=== PATIENT | female | born 1980 | race Caucasian/White ===

== ENCOUNTER 2017-12-17 09:42 | Emergency (ER) | payer MEDICAID, OTHER ==
--- NOTE | 2017-12-17 10:23 | EDM.PDOC ---
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 12/17/17 [Rx] Past Medical History HEENT History: Reports: Impaired Vision Other Cardiovascular History: TREATED FOR VARICOSE VEINS Respiratory History: Reports: None Gastrointestinal History: Reports: Cholelithiasis, GERD Genitourinary History: Reports: None COMPANY PILOT History: Reports: Other OB/BYN History: V PARA V. PAST TUBAL LIGATION Other Musculoskeletal History: PAIN RIGHT KNEE Neurological History: Reports: None Psychiatric History: Reports: Anxiety, Depression Other Psychiatric History: SEES PEOPLE AT [facility] ET MEDICATES FOR DEPRESSION ET ANXIETY. Endocrine/Metabolic History: Reports: None, Obesity/BMI 30+ Hematologic History: Reports: None Immunologic History: Reports: None Oncologic (Cancer) History: Reports: None Dermatologic History: Reports: Other (See Below) Other Dermatologic History: varicose veins - Infectious Disease History Infectious Disease History: Reports: Chicken Pox - Past Surgical History Head Surgeries/Procedures: Reports: None HEENT Surgical History: Reports: None GI Surgical History: Reports: None Female Surgical History: Reports: Tubal Ligation, Other (See Below) Musculoskeletal Surgical History: Reports: Arthroscopic Knee Other Musculoskeletal Surgeries/Procedures:: L knee scope Dermatological Surgical History: Reports: Other (See Below) Social & Family History - Family History Family Medical History: Noncontributory - Tobacco Use Smoking Status *Q: Current Every Day Smoker Years of Tobacco use: 23 Packs/Tins Daily: 1 Month/Year Tobacco Last Used: 09/2015 - Caffeine Use Caffeine Use: Reports: Coffee - Recreational Drug Use Recreational Drug Use: No Review of Systems - Review of Systems Review Of Systems: See Below Constitutional: Reports: No Symptoms Eyes: Reports: No Symptoms Ears: Reports: No Symptoms Nose: Reports: No Symptoms Mouth/Throat: Reports: No Symptoms Respiratory: Reports: No Symptoms Cardiovascular: Reports: No Symptoms GI/Abdominal: Reports: No Symptoms Genitourinary: Reports: No Symptoms Musculoskeletal: Reports: No Symptoms Skin: Reports: Wound Neurological: Reports: No Symptoms Psychiatric: Reports: No Symptoms ED EXAM, GENERAL - Physical Exam Exam: See Below Exam Limited By: No Limitations General Appearance: Alert, WD/WN, No Apparent Distress Extremities: Other (R 5th finger with 1.2 x 0.7 cm avulsion on lateral aspect of fingertip, not involving nail or joint or actual distal tip itself, there is about 0.1 cm of dermis at the rim so that maximal exposed fat is 1.0 cm, cleaned by RN, no f.b.) Course - Vital Signs Last Recorded V/S: Last Vital Signs Temp 36.7 C 12/17/17 09:43 Pulse 73 12/17/17 09:43 Resp 18 12/17/17 09:43 BP 121/81 12/17/17 09:43 Pulse Ox 98 12/17/17 09:43 - Re-Assessments/Exams Free Text/Narrative Re-Assessment/Exam: 12/17/17 10:25 d/w hand surgeon Dr Herring at [facility] who recommended healing by granulation Departure - Departure Time of Disposition: 10:26 Disposition: Home, Self-Care 01 Condition: Good Clinical Impression: Fingertip avulsion - Discharge Information Prescriptions: Mupirocin Calcium [Mupirocin] 15 gm TP BID #15 cream..g. Referrals: David Cole MD [Primary Care Provider] - Additional Instructions: Keep clean and dry and covered with a dressing. Avoid pressure or rubbing. Use a glove when working. Use a thin layer of mupiricin cream 2 times a day for 1 week. No work restrictions except as above. See your doctor the same day if there is any increase in redness, warmth, pain, fever, drainage or swelling. See your doctor in one week. Call your Physician or Return to Emergency Department if: * Your condition worsens in any way. * You develop fever greater than 100.4. * You have vomitting that does not stop with medications. * You have pain that is not controlled with medications.
[2017-12-17] MEDS: Mupirocin Oint 22 GM Tube TOP ONE (10:28)
[2017-12-17 10:46] VITALS: BP 114/83
== END 2017-12-17 10:41 | disposition home or self-care (01) ==
LOC: FB.ED 09:42
DX: S61.206A Unspecified open wound of right little finger without damage to nail, initial encounter (principal); F17.210 Nicotine dependence, cigarettes, uncomplicated; E66.9 Obesity, unspecified; W45.8XXA Other foreign body or object entering through skin, initial encounter; Y93.89 Activity, other specified; Y92.219 Unspecified school as the place of occurrence of the external cause
CPT/HCPCS: 99283; A9270-GY

== ENCOUNTER 2021-09-15 19:46 | Emergency (ER) | payer SELFPAY ==
--- NOTE | 2021-09-15 20:15 | EDM.PDOC ---
ED HPI GENERAL MEDICAL PROBLEM - General Chief Complaint: Upper Extremity Injury/Pain Stated Complaint: CUT LEFT INDEX Time Seen by Provider: 09/15/21 20:01 Source of Information: Reports: Patient, Old Records, RN History Limitations: Reports: No Limitations - History of Present Illness INITIAL COMMENTS - FREE TEXT/NARRATIVE: 41 yo female presents with a laceration of the smith side of her L index finger tip from a knife that slipped while cutting up cabbage for dinner. Her last tetanus was in '17. Onset: Today, Sudden Onset Date: 09/15/21 Duration: Minutes:, Constant Location: Reports: Upper Extremity, Left Quality: Reports: Burning Severity: Mild Improves with: Reports: None Worsens with: Reports: None Context: Reports: Trauma Associated Symptoms: Reports: No Other Symptoms Treatments OPTICAL MANAGER: Reports: Other (see below) (none) - Related Data Allergies Allergy/AdvReac Type Severity Reaction Status Date / Time No Known Allergies Allergy Verified 12/17/17 09:48 Home Meds: Home Meds Naproxen Sodium [Aleve] 220 mg PO BID PRN 09/25/15 [History] Mupirocin Calcium [Mupirocin] 15 gm TP BID #15 cream..g. 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 PAST TUBAL LIGATION Other Musculoskeletal History: PAIN RIGHT KNEE Neurological History: Reports: None Psychiatric History: Reports: Anxiety, Depression Other Psychiatric History: SEES PEOPLE AT [employer] [facility] ET MEDICATES FOR DEPRESSION ET ANXIETY. Endocrine/Metabolic History: Reports: None, Obesity/BMI 30+ Hematologic History: Reports: None Immunologic History: Reports: None Oncologic (Cancer) History: Reports: None Dermatologic History: Reports: Other (See Below) Other Dermatologic History: varicose veins - Infectious Disease History Infectious Disease History: Reports: Chicken Pox - Past Surgical History Head Surgeries/Procedures: Reports: None HEENT Surgical History: Reports: None GI Surgical History: Reports: None Female Surgical History: Reports: Tubal Ligation, Other (See Below) Musculoskeletal Surgical History: Reports: Arthroscopic Knee Other Musculoskeletal Surgeries/Procedures:: L knee scope Dermatological Surgical History: Reports: Other (See Below) Social & Family History - Family History Family Medical History: No Pertinent Family History - Caffeine Use Caffeine Use: Reports: Coffee Review of Systems - Review of Systems Review Of Systems: See Below Constitutional: Reports: No Symptoms Skin: Reports: Wound (L index finger) Neurological: Reports: No Symptoms ED EXAM, GENERAL - Physical Exam Exam: See Below Exam Limited By: No Limitations General Appearance: Alert, WD/WN, No Apparent Distress Extremities: Other (wound L index finger) Skin Exam: Warm, Dry, Normal Color, No Rash, Wound/Incision (L index finger tip laceration, smith aspect. ). No: Intact ED TRAUMA EXTREMITY PROCEDURES - Laceration/Wound Repair Left Distal Ventral Digit - 2nd (Index) Lac/Wound Length In cm: 1.9 Appearance: Subcutaneous, Linear, Clean Distal NVT: Neuro & Vascular Intact, No Tendon Injury Anesthetic Type: Local Local Anesthesia - Lidocaine (Xylocaine): 1% Plain Local Anesthetic Volume: 2cc Skin Prep: Other (soap and water) Exploration/Debridement/Repair: Wound Explored Closed With: Sutures Suture Size: 5-0 # of Sutures: 6 Suture Type: Nylon, Interrupted, Simple Drain Placement: No Sterile Dressing Applied: Nurse Tetanus Status Addressed: Yes Complications: No Course - Orders/Labs/Meds Orders: Active Orders 24 hr Category Date Time Status Lidocaine 1% [Xylocaine-MPF 1%] Med 09/15/21 20:00 Once 5 ml INJECT ONETIME ONE Medication Orders Lidocaine HCl (Lidocaine 1% 5 Ml Sdv) 5 ml INJECT ONETIME ONE Stop: 09/15/21 20:01 Meds: Medications Generic Name Dose Route Start Last Admin Trade Name Freq PRN Reason Stop Dose Admin Lidocaine HCl 5 ml 09/15/21 20:00 Lidocaine 1% 5 Ml Sdv INJECT 09/15/21 20:01 ONETIME ONE Departure - Departure Time of Disposition: 20:30 Disposition: Home, Self-Care 01 Condition: Good Clinical Impression: Laceration of left index finger Qualifiers: Encounter type: initial encounter Damage to nail status: without damage Foreign body presence: without foreign body Qualified Code(s): S61.211A - Laceration without foreign body of left index finger without damage to nail, initial encounter - Discharge Information *PRESCRIPTION DRUG MONITORING PROGRAM REVIEWED*: Not Applicable *COPY OF PRESCRIPTION DRUG MONITORING REPORT IN PATIENT MARY ANN: Not Applicable Instructions: Laceration Care, Adult, [id number] Referrals: Gumaro De La Cruz MD [Primary Care Provider] - Forms: ED Department Discharge Additional Instructions: Clean wound twice a day with soap and water. Dry. Apply antibiotic oinment and a new dressing. Keep wound clean for 3 days. Stitches out in 9-10 days. Recheck sooner for signs of infection. Acetaminophen for pain relief. - My Orders Last 24 Hours: My Active Orders 09/15/21 20:00 Lidocaine 1% [Xylocaine-MPF 1%] 5 ml INJECT ONETIME ONE - Assessment/Plan Last 24 Hours: My Active Orders 09/15/21 20:00 Lidocaine 1% [Xylocaine-MPF 1%] 5 ml INJECT ONETIME ONE
[2021-09-15] MEDS ORDERED: Bacitracin Oint 1 GM U/D Packet TOP ONE (20:19)
[2021-09-16 03:05] VITALS: BP 128/92; PULSE 86
== END 2021-09-15 20:42 | disposition home or self-care (01) ==
LOC: FB.ED 19:46
DX: S61.211A Laceration without foreign body of left index finger without damage to nail, initial encounter (principal); Z79.899 Other long term (current) drug therapy; W26.0XXA Contact with knife, initial encounter
CPT/HCPCS: 12001; 99282-25; 99284